=== PATIENT | female | born 1980 | race Caucasian/White ===

== ENCOUNTER 2020-10-13 22:34 | Inpatient (IN) | payer OTHER ==
[2020-10-13] MEDS ORDERED: DEXAMETHASONE SOD PHOSPHATE 4 MG/1 ML VIAL IVPUSH ONE (23:02)
[2020-10-14 00:10] LABS: BASO % 0.2 % (0-2.0); EOS % 0.8 % (0-4.5); HEMATOCRIT 29.6 % (32.4-45.2); HEMOGLOBIN 9.7 GM/dL (10.7-15.3); LYMPH % 12.9 % (8-40); MCH 25.3 pg (25.7-33.7); MCHC 32.8 g/dl (32.0-36.0); MEAN CELL VOLUME 77.2 fl (80-96); NEUT % 81.1 % (42.8-82.8); PLATELET COUNT 327 K/MM3 (134-434); RBC 3.83 M/mm3 (3.60-5.2); RDW 16.7 % (11.6-15.6); WHITE BLOOD COUNT 6.1 K/mm3 (4.0-10.0)
[2020-10-14 00:17] LABS: ARTERIAL BLD GAS O2 SATURATION 92.9 mmHg (95-98); ARTERIAL BLOOD GAS BASE EXCESS 2.6 mmol/L (-2-2); ARTERIAL BLOOD GAS PO2 61.2 mmHg (80-100); ARTERIAL BLOOD GAS pH 7.468 (7.350-7.450)
[2020-10-14 00:18] LABS: CHLORIDE 104 mmol/L (98-107); SODIUM 141 mmol/L (136-145)
[2020-10-14 00:19] LABS: INR 1.25 (0.83-1.09)
[2020-10-14 00:20] LABS: CALCIUM 7.9 mg/dL (8.5-10.1)
[2020-10-14 00:21] LABS: ACTIVATED PTT 29.8 SECONDS (25.2-36.5); ALBUMIN 2.8 g/dl (3.4-5.0); ANION GAP 9 MMOL/L (8-16); BLOOD UREA NITROGEN 11.2 mg/dL (7-18); CO2 28 mmol/L (21-32); GLUCOSE,RANDOM 137 mg/dL (74-106); LIPASE 72 U/L (73-393)
[2020-10-14 00:23] LABS: BILIRUBIN,DIRECT 0.3 mg/dL (0.0-0.2); CREATININE 0.8 mg/dL (0.55-1.3); SGPT/ALT 26 U/L (13-61)
[2020-10-14 00:24] LABS: SGOT/AST 48 U/L (15-37)
[2020-10-14 00:25] LABS: ALLENS TEST POSITIVE; BILIRUBIN,TOTAL 0.5 mg/dL (0.2-1); LDH 618 U/L (84-246); TOT PROT 6.8 g/dl (6.4-8.2)
[2020-10-14 00:26] LABS: ALK PHOS 96 U/L (45-117)
[2020-10-14 01:20] LABS: ANISOCYTOSIS 1+; MACROCYTOSIS 0; PLATELET ESTIMATE NORMAL
[2020-10-14 08:14] LABS: HEMATOCRIT 28.5 % (32.4-45.2); HEMOGLOBIN 9.3 GM/dL (10.7-15.3); MCH 25.2 pg (25.7-33.7); MCHC 32.7 g/dl (32.0-36.0); MEAN PLT VOLUME 8.2 fl (7.5-11.1); PLATELET COUNT 311 K/MM3 (134-434); RDW 16.7 % (11.6-15.6); WHITE BLOOD COUNT 5.6 K/mm3 (4.0-10.0)
[2020-10-14] MEDS ORDERED: ZINC SULFATE 220 MG CAPSULE (FP) ONE (08:20)
[2020-10-14] MEDS ORDERED: ASCORBIC ACID 500 MG TABLET (FP) ONE ×2 (08:20→22:39)
[2020-10-14] MEDS ORDERED: DEXAMETHASONE SOD PHOSPHATE 4 MG/1 ML VIAL ONE (08:20)
[2020-10-14] MEDS ORDERED: FAMOTIDINE 20 MG/50 ML IVPB 20 MG/50 ML MG IVPB ONE ×2 (08:21→22:39)
[2020-10-14] MEDS ORDERED: CHOLECALCIFEROL (VIT D3) 1,000 UNIT (25 MCG) TABLET ONE (08:21)
[2020-10-14 08:27] LABS: IRON SERUM 14 ug/dL (50-175); TOTAL IRON BINDING CAPACITY 256 ug/dL (250-450)
[2020-10-14 08:58] LABS: ALBUMIN 2.5 g/dl (3.4-5.0); BLOOD UREA NITROGEN 10.9 mg/dL (7-18); CALCIUM 7.6 mg/dL (8.5-10.1); MAGNESIUM 2.7 mg/dL (1.8-2.4)
[2020-10-14 09:01] LABS: CREATININE 0.7 mg/dL (0.55-1.3)
[2020-10-14 09:02] LABS: PHOSPHOROUS 3.6 mg/dL (2.5-4.9)
[2020-10-14 09:03] LABS: BILIRUBIN,TOTAL 0.4 mg/dL (0.2-1); TOT PROT 6.4 g/dl (6.4-8.2)
[2020-10-14] MEDS: FAMOTIDINE 20 MG/50 ML IVPB 20 MG/50 ML MG IVPB SCH ×2 (09:04→22:44)
[2020-10-14] MEDS: ENOXAPARIN NA (PORCINE) 40 MG/0.4 ML DISP.SYRIN SQ SCH (09:04)
[2020-10-14] MEDS: ZINC SULFATE 220 MG CAPSULE (FP) PO SCH (09:04)
[2020-10-14] MEDS: ASCORBIC ACID 500 MG TABLET (FP) PO SCH ×2 (09:04→22:44)
[2020-10-14] MEDS: CHOLECALCIFEROL (VIT D3) 1,000 UNIT (25 MCG) TABLET PO SCH (09:04)
[2020-10-14] MEDS: DEXAMETHASONE SOD PHOSPHATE 4 MG/1 ML VIAL IVPUSH SCH (09:04)
[2020-10-14] MEDS ORDERED: ENOXAPARIN NA (PORCINE) 80 MG/0.8 ML DISP.SYRIN SQ SCH (10:00)
[2020-10-14] MEDS ORDERED: REMDESIVIR 200 MG in SODIUM CHLORIDE 210 ML IVPB ONE (12:00)
[2020-10-14] MEDS: ALBUTEROL SO4 HFA INHALER IH SCH ×2 (19:09→20:09)
[2020-10-14] MEDS: BUDESONIDE/FORMETEROL FUMARATE 160/4.5 mcg INHALER IH SCH (19:46)
[2020-10-14] MEDS ORDERED: PNEUMOC 13-VAL CONJ-DIP CRM/PF 0.5 ML DISP.SYRIN IM ONE (23:37)
[2020-10-14 23:40] VITALS: BMI 33.0
[2020-10-15] MEDS ORDERED: guaiFENesin 200 MG/10 ML 10 ML UNIT-DOSE CUPS PO ONE (03:32)
[2020-10-15 08:07] LABS: HEMATOCRIT 29.7 % (32.4-45.2); HEMOGLOBIN 10.1 GM/dL (10.7-15.3); MCH 25.8 pg (25.7-33.7); MEAN PLT VOLUME 7.7 fl (7.5-11.1); PLATELET COUNT 373 K/MM3 (134-434); RBC 3.91 M/mm3 (3.60-5.2); RDW 16.3 % (11.6-15.6); WHITE BLOOD COUNT 7.8 K/mm3 (4.0-10.0)
[2020-10-15] MEDS: ALBUTEROL SO4 HFA INHALER IH SCH ×4 (09:09→20:47)
[2020-10-15] MEDS: ASCORBIC ACID 500 MG TABLET (FP) PO SCH ×2 (09:10→21:37)
[2020-10-15] MEDS: CHOLECALCIFEROL (VIT D3) 1,000 UNIT (25 MCG) TABLET PO SCH (09:10)
[2020-10-15] MEDS: DEXAMETHASONE SOD PHOSPHATE 4 MG/1 ML VIAL IVPUSH SCH (09:10)
[2020-10-15] MEDS: ENOXAPARIN NA (PORCINE) 40 MG/0.4 ML DISP.SYRIN SQ SCH (09:10)
[2020-10-15] MEDS: FAMOTIDINE 20 MG/50 ML IVPB 20 MG/50 ML MG IVPB SCH ×2 (09:10→21:36)
[2020-10-15] MEDS: ZINC SULFATE 220 MG CAPSULE (FP) PO SCH (09:11)
[2020-10-15] MEDS: guaiFENesin 200 MG/10 ML 10 ML UNIT-DOSE CUPS PO PRN ×2 (11:18→21:36)
[2020-10-15 12:10] LABS: ALBUMIN 2.6 g/dl (3.4-5.0); BLOOD UREA NITROGEN 19.7 mg/dL (7-18); CALCIUM 7.9 mg/dL (8.5-10.1)
[2020-10-15 12:14] LABS: CREATININE 0.9 mg/dL (0.55-1.3)
[2020-10-15 12:15] LABS: BILIRUBIN,TOTAL 0.4 mg/dL (0.2-1)
[2020-10-15] MEDS: REMDESIVIR 100 MG in SODIUM CHLORIDE 230 ML IVPB SCH (12:34)
[2020-10-15] MEDS: BUDESONIDE/FORMETEROL FUMARATE 160/4.5 mcg INHALER IH SCH ×3 (12:34→21:37)
[2020-10-16 07:37] LABS: HEMATOCRIT 30.2 % (32.4-45.2); HEMOGLOBIN 9.8 GM/dL (10.7-15.3); MCH 25.2 pg (25.7-33.7); MCHC 32.6 g/dl (32.0-36.0); MEAN CELL VOLUME 77.1 fl (80-96); MEAN PLT VOLUME 7.6 fl (7.5-11.1); PLATELET COUNT 452 K/MM3 (134-434); RBC 3.91 M/mm3 (3.60-5.2); RDW 16.6 % (11.6-15.6); WHITE BLOOD COUNT 11.4 K/mm3 (4.0-10.0)
[2020-10-16 08:00] LABS: ALBUMIN 2.5 g/dl (3.4-5.0); CALCIUM 7.8 mg/dL (8.5-10.1)
[2020-10-16 08:04] LABS: CREATININE 0.9 mg/dL (0.55-1.3); TOT PROT 6.8 g/dl (6.4-8.2)
[2020-10-16] MEDS: FAMOTIDINE 20 MG/50 ML IVPB 20 MG/50 ML MG IVPB SCH ×2 (09:24→21:14)
[2020-10-16] MEDS: REMDESIVIR 100 MG in SODIUM CHLORIDE 230 ML IVPB SCH (09:24)
[2020-10-16] MEDS: ENOXAPARIN NA (PORCINE) 40 MG/0.4 ML DISP.SYRIN SQ SCH (09:24)
[2020-10-16] MEDS: ASCORBIC ACID 500 MG TABLET (FP) PO SCH ×2 (09:25→21:14)
[2020-10-16] MEDS: ZINC SULFATE 220 MG CAPSULE (FP) PO SCH (09:25)
[2020-10-16] MEDS: CHOLECALCIFEROL (VIT D3) 1,000 UNIT (25 MCG) TABLET PO SCH (09:25)
[2020-10-16] MEDS: DEXAMETHASONE SOD PHOSPHATE 4 MG/1 ML VIAL IVPUSH SCH (09:25)
[2020-10-16] MEDS: BUDESONIDE/FORMETEROL FUMARATE 160/4.5 mcg INHALER IH SCH ×2 (09:39→21:14)
[2020-10-16] MEDS: ALBUTEROL SO4 HFA INHALER IH SCH ×4 (09:40→20:53)
[2020-10-16 12:52] LABS: ALBUMIN 2.5 g/dl (3.4-5.0); CALCIUM 7.9 mg/dL (8.5-10.1)
[2020-10-16 12:54] LABS: BILIRUBIN,TOTAL 0.4 mg/dL (0.2-1); TOT PROT 6.5 g/dl (6.4-8.2)
[2020-10-16 12:55] LABS: CREATININE 0.9 mg/dL (0.55-1.3)
[2020-10-16] MEDS: guaiFENesin 200 MG/10 ML 10 ML UNIT-DOSE CUPS PO PRN (17:04)
[2020-10-17] MEDS ORDERED: amLODIPine BESYLATE 5 MG TABLET (FP) PO ONE ×2 (06:45→23:01)
[2020-10-17] MEDS: guaiFENesin 200 MG/10 ML 10 ML UNIT-DOSE CUPS PO PRN ×2 (07:03→22:04)
[2020-10-17 10:04] LABS: BASO % 0.3 % (0-2.0); EOS % 0.4 % (0-4.5); HEMATOCRIT 31.9 % (32.4-45.2); HEMOGLOBIN 10.5 GM/dL (10.7-15.3); LYMPH % 19.9 % (8-40); MCH 25.2 pg (25.7-33.7); MEAN CELL VOLUME 76.2 fl (80-96); MEAN PLT VOLUME 7.5 fl (7.5-11.1); NEUT % 74.4 % (42.8-82.8); PLATELET COUNT 422 K/MM3 (134-434); RBC 4.19 M/mm3 (3.60-5.2); RDW 16.5 % (11.6-15.6); WHITE BLOOD COUNT 11.1 K/mm3 (4.0-10.0)
[2020-10-17] MEDS: DEXAMETHASONE SOD PHOSPHATE 4 MG/1 ML VIAL IVPUSH SCH (10:08)
[2020-10-17] MEDS: ASCORBIC ACID 500 MG TABLET (FP) PO SCH ×2 (10:09→22:04)
[2020-10-17] MEDS: CHOLECALCIFEROL (VIT D3) 1,000 UNIT (25 MCG) TABLET PO SCH (10:09)
[2020-10-17] MEDS: ALBUTEROL SO4 HFA INHALER IH SCH ×4 (10:09→19:55)
[2020-10-17] MEDS: ZINC SULFATE 220 MG CAPSULE (FP) PO SCH (10:10)
[2020-10-17] MEDS: FAMOTIDINE 20 MG/50 ML IVPB 20 MG/50 ML MG IVPB SCH (10:10)
[2020-10-17] MEDS: BUDESONIDE/FORMETEROL FUMARATE 160/4.5 mcg INHALER IH SCH ×2 (10:10→22:04)
[2020-10-17 11:06] LABS: ALBUMIN 2.6 g/dl (3.4-5.0)
[2020-10-17 11:08] LABS: BILIRUBIN,DIRECT 0.3 mg/dL (0.0-0.2)
[2020-10-17 11:10] LABS: BILIRUBIN,TOTAL 0.6 mg/dL (0.2-1)
[2020-10-17 11:11] LABS: TOT PROT 6.4 g/dl (6.4-8.2)
[2020-10-17 11:15] LABS: ANISOCYTOSIS 0; MACROCYTOSIS 0; PLATELET ESTIMATE NORMAL
[2020-10-17] MEDS: REMDESIVIR 100 MG in SODIUM CHLORIDE 230 ML IVPB SCH (11:38)
[2020-10-17 11:59] LABS: CREATININE 0.9 mg/dL (0.55-1.3)
[2020-10-17] MEDS: ENOXAPARIN NA (PORCINE) 40 MG/0.4 ML DISP.SYRIN SQ SCH (12:23)
[2020-10-17] MEDS: MELATONIN 5 MG TABLETS PO PRN (22:04)
[2020-10-17] MEDS: ENOXAPARIN NA (PORCINE) 80 MG/0.8 ML DISP.SYRIN SQ SCH (22:05)
[2020-10-17] MEDS: FAMOTIDINE 20 MG TABLET PO SCH (22:05)
[2020-10-18] MEDS: guaiFENesin 200 MG/10 ML 10 ML UNIT-DOSE CUPS PO PRN ×2 (07:14→21:49)
[2020-10-18] MEDS: ALBUTEROL SO4 HFA INHALER IH SCH ×4 (08:00→20:16)
[2020-10-18 09:38] LABS: BASO % 0.3 % (0-2.0); HEMATOCRIT 32.8 % (32.4-45.2); HEMOGLOBIN 11.1 GM/dL (10.7-15.3); LYMPH % 26.6 % (8-40); MCH 25.7 pg (25.7-33.7); MCHC 33.7 g/dl (32.0-36.0); MEAN PLT VOLUME 7.5 fl (7.5-11.1); MONO % 4.9 % (3.8-10.2); NEUT % 67.2 % (42.8-82.8); PLATELET COUNT 442 K/MM3 (134-434); RBC 4.32 M/mm3 (3.60-5.2); RDW 16.6 % (11.6-15.6); WHITE BLOOD COUNT 10.7 K/mm3 (4.0-10.0)
[2020-10-18] MEDS ORDERED: amLODIPine BESYLATE 5 MG TABLET (FP) PO SCH (10:00)
[2020-10-18 10:41] LABS: ANISOCYTOSIS 3+; MACROCYTOSIS 0; PLATELET ESTIMATE NORMAL
[2020-10-18 10:54] LABS: BLOOD UREA NITROGEN 28.1 mg/dL (7-18)
[2020-10-18 10:56] LABS: CALCIUM 8.1 mg/dL (8.5-10.1)
[2020-10-18 10:57] LABS: ALBUMIN 2.7 g/dl (3.4-5.0)
[2020-10-18 11:00] LABS: CREATININE 0.8 mg/dL (0.55-1.3)
[2020-10-18 11:02] LABS: TOT PROT 6.7 g/dl (6.4-8.2)
[2020-10-18 11:07] LABS: BILIRUBIN,TOTAL 0.7 mg/dL (0.2-1)
[2020-10-18] MEDS: ASCORBIC ACID 500 MG TABLET (FP) PO SCH ×2 (12:29→21:49)
[2020-10-18] MEDS: BUDESONIDE/FORMETEROL FUMARATE 160/4.5 mcg INHALER IH SCH ×2 (12:29→21:49)
[2020-10-18] MEDS: DEXAMETHASONE SOD PHOSPHATE 4 MG/1 ML VIAL IVPUSH SCH (12:30)
[2020-10-18] MEDS: REMDESIVIR 100 MG in SODIUM CHLORIDE 230 ML IVPB SCH (12:30)
[2020-10-18] MEDS: FAMOTIDINE 20 MG TABLET PO SCH ×2 (12:30→21:49)
[2020-10-18] MEDS: ZINC SULFATE 220 MG CAPSULE (FP) PO SCH (12:30)
[2020-10-18] MEDS: CHOLECALCIFEROL (VIT D3) 1,000 UNIT (25 MCG) TABLET PO SCH (12:31)
[2020-10-18] MEDS: ENOXAPARIN NA (PORCINE) 80 MG/0.8 ML DISP.SYRIN SQ SCH ×3 (17:25→21:49)
[2020-10-18] MEDS: MELATONIN 5 MG TABLETS PO PRN (21:49)
[2020-10-19] MEDS: guaiFENesin 200 MG/10 ML 10 ML UNIT-DOSE CUPS PO PRN (05:27)
[2020-10-19] MEDS: ALBUTEROL SO4 HFA INHALER IH SCH ×4 (08:00→21:57)
[2020-10-19 08:07] LABS: BASO % 0.4 % (0-2.0); EOS % 0.5 % (0-4.5); HEMATOCRIT 31.8 % (32.4-45.2); HEMOGLOBIN 10.5 GM/dL (10.7-15.3); LYMPH % 21.1 % (8-40); MCH 25.3 pg (25.7-33.7); MCHC 33.2 g/dl (32.0-36.0); MEAN CELL VOLUME 76.3 fl (80-96); MEAN PLT VOLUME 7.8 fl (7.5-11.1); MONO % 4.2 % (3.8-10.2); NEUT % 73.8 % (42.8-82.8); PLATELET COUNT 417 K/MM3 (134-434); RBC 4.16 M/mm3 (3.60-5.2); RDW 16.4 % (11.6-15.6); WHITE BLOOD COUNT 11.2 K/mm3 (4.0-10.0)
[2020-10-19 08:31] LABS: ALBUMIN 2.7 g/dl (3.4-5.0); BLOOD UREA NITROGEN 22.2 mg/dL (7-18); CALCIUM 7.9 mg/dL (8.5-10.1)
[2020-10-19 08:33] LABS: BILIRUBIN,TOTAL 0.6 mg/dL (0.2-1); TOT PROT 6.8 g/dl (6.4-8.2)
[2020-10-19 08:34] LABS: BILIRUBIN,DIRECT 0.2 mg/dL (0.0-0.2); CREATININE 0.8 mg/dL (0.55-1.3)
[2020-10-19 09:36] LABS: ANISOCYTOSIS 0; MACROCYTOSIS 0; PLATELET ESTIMATE INCREASED
[2020-10-19] MEDS: ASCORBIC ACID 500 MG TABLET (FP) PO SCH ×2 (09:43→21:56)
[2020-10-19] MEDS: DEXAMETHASONE SOD PHOSPHATE 4 MG/1 ML VIAL IVPUSH SCH (09:43)
[2020-10-19] MEDS: ENOXAPARIN NA (PORCINE) 80 MG/0.8 ML DISP.SYRIN SQ SCH ×2 (09:43→21:56)
[2020-10-19] MEDS: ZINC SULFATE 220 MG CAPSULE (FP) PO SCH (09:43)
[2020-10-19] MEDS: FAMOTIDINE 20 MG TABLET PO SCH ×2 (09:44→21:56)
[2020-10-19] MEDS: CHOLECALCIFEROL (VIT D3) 1,000 UNIT (25 MCG) TABLET PO SCH (09:45)
[2020-10-19] MEDS: BUDESONIDE/FORMETEROL FUMARATE 160/4.5 mcg INHALER IH SCH ×2 (09:52→21:57)
[2020-10-19] MEDS: FERROUS SO4 325 MG TABLET (FP) PO SCH (14:05)
[2020-10-19 16:59] LABS: IRON SERUM 29 ug/dL (50-175); TOTAL IRON BINDING CAPACITY 362 ug/dL (250-450)
[2020-10-19] MEDS: amLODIPine BESYLATE 5 MG TABLET (FP) PO SCH (17:33)
[2020-10-20 07:01] LABS: HEMATOCRIT 33.5 % (32.4-45.2); HEMOGLOBIN 11.2 GM/dL (10.7-15.3); MCH 25.7 pg (25.7-33.7); MCHC 33.6 g/dl (32.0-36.0); MEAN CELL VOLUME 76.6 fl (80-96); MEAN PLT VOLUME 7.9 fl (7.5-11.1); PLATELET COUNT 422 K/MM3 (134-434); RBC 4.37 M/mm3 (3.60-5.2); RDW 16.3 % (11.6-15.6)
[2020-10-20 08:33] LABS: CALCIUM 8.2 mg/dL (8.5-10.1)
[2020-10-20 08:34] LABS: ALBUMIN 2.9 g/dl (3.4-5.0); BLOOD UREA NITROGEN 21.8 mg/dL (7-18); MAGNESIUM 2.5 mg/dL (1.8-2.4)
[2020-10-20 08:37] LABS: CREATININE 0.7 mg/dL (0.55-1.3); PHOSPHOROUS 3.5 mg/dL (2.5-4.9)
[2020-10-20 08:38] LABS: BILIRUBIN,TOTAL 0.4 mg/dL (0.2-1)
[2020-10-20 08:39] LABS: TOT PROT 6.8 g/dl (6.4-8.2)
[2020-10-20] MEDS: DEXAMETHASONE SOD PHOSPHATE 4 MG/1 ML VIAL IVPUSH SCH (09:08)
[2020-10-20] MEDS: amLODIPine BESYLATE 5 MG TABLET (FP) PO SCH (09:09)
[2020-10-20] MEDS: ZINC SULFATE 220 MG CAPSULE (FP) PO SCH (09:09)
[2020-10-20] MEDS: ALBUTEROL SO4 HFA INHALER IH SCH ×3 (09:09→16:00)
[2020-10-20] MEDS: BUDESONIDE/FORMETEROL FUMARATE 160/4.5 mcg INHALER IH SCH (09:09)
[2020-10-20] MEDS: FAMOTIDINE 20 MG TABLET PO SCH (09:09)
[2020-10-20] MEDS: FERROUS SO4 325 MG TABLET (FP) PO SCH (09:09)
[2020-10-20] MEDS: ENOXAPARIN NA (PORCINE) 80 MG/0.8 ML DISP.SYRIN SQ SCH (09:09)
[2020-10-20] MEDS: ASCORBIC ACID 500 MG TABLET (FP) PO SCH (09:09)
[2020-10-20] MEDS: CHOLECALCIFEROL (VIT D3) 1,000 UNIT (25 MCG) TABLET PO SCH (09:10)
[2020-10-20 15:10] VITALS: BP 127/63; PULSE 65
[2020-10-20 17:05] VITALS: TEMP 98.2
== END 2020-10-20 18:21 | disposition home or self-care (01) | DRG 137 ==
LOC: JER 22:34 → JERBED 23:00 → J7W 10-14 22:47
PROVIDERS: ADMIT Hospitalist; ATTEND Internal Medicine
PROC: XW033E5 Introduction of Remdesivir Anti-infective into Peripheral Vein, Percutaneous Approach, New Technology Group 5 (ICD-10-PCS; principal; 2020-10-14)
DX: U07.1 COVID-19 (principal); J12.82 Pneumonia due to coronavirus disease 2019; J96.01 Acute respiratory failure with hypoxia; J45.909 Unspecified asthma, uncomplicated; D50.9 Iron deficiency anemia, unspecified; R74.01 Elevation of levels of liver transaminase levels
CPT/HCPCS: 36415; 36600; 71045-TC-FY; 80053; 80076; 82248; 82550; 82728; 82803; 83540; 83550; 83605; 83615; 83690; 83735; 84100; 84484; 84703; 85025; 85027; 85045; 85379; 85610; 85730; 86140; 86769; 86850; 86900; 86901; 87804; 93005; 93010; 99285-25; C9399; C9803; U0003